=== PATIENT | male | born 1985 | race African-American/Black ===

== ENCOUNTER 2021-06-06 14:51 | Emergency (ER) | payer OTHER ==
[~2021-06-06] VITALS: Ht 175.3 cm; Wt 115.0 kg
[2021-06-06 14:53] VITALS: BP 152/91
[2021-06-06] MEDS ORDERED: CARB15DR63 EACH EAR (17:30)
== END 2021-06-06 17:53 | disposition home or self-care (01) ==
LOC: ER 14:51
DX: H93.12 Tinnitus, left ear (principal); F12.10 Cannabis abuse, uncomplicated
CPT/HCPCS: 99282

== ENCOUNTER 2021-07-21 17:13 | Emergency (ER) | payer OTHER ==
[~2021-07-21] VITALS: Ht 175.3 cm; Wt 120.0 kg
[~2021-07-21 17:13] MED LIST: CARB15DR63 EACH EAR
[2021-07-21] MEDS ORDERED: CYCL10TA7 MT (21:21)
[2021-07-21] MEDS ORDERED: IBUP-2030 MT (21:21)
[2021-07-21] MEDS ORDERED: CYCLOBENZAPRINE 10MG TABLET PO ONE (21:30)
[2021-07-21] MEDS ORDERED: IBUPROFEN 800MG TABLET PO ONE (21:30)
[2021-07-21 22:30] VITALS: BP 122/74
== END 2021-07-21 22:30 | disposition home or self-care (01) ==
LOC: ER 17:13
DX: M54.30 Sciatica, unspecified side (principal); F12.10 Cannabis abuse, uncomplicated
CPT/HCPCS: 99283

== ENCOUNTER 2025-05-20 08:12 | Emergency (ER) | payer SELFPAY ==
[~2025-05-20] VITALS: Ht 175.3 cm; Wt 103.0 kg
[~2025-05-20 08:12] MED LIST changes: +CYCL10TA21 MT; +IBUP-2030 MT
[2025-05-20 08:17] VITALS: PULSE 77; RESP 14; O2SAT 98
[2025-05-20 08:19] VITALS: BP 149/98; TEMP 36.6; O2SAT 98
[2025-05-20] MEDS ORDERED: CARB15DR63 LEFT EAR (09:01)
[2025-05-20] MEDS ORDERED: PSEU-307 MT (09:01)
== END 2025-05-20 09:34 | disposition home or self-care (01) ==
LOC: ER 08:12
DX: H61.23 Impacted cerumen, bilateral (principal); B34.9 Viral infection, unspecified; F12.90 Cannabis use, unspecified, uncomplicated
CPT/HCPCS: 99282